=== PATIENT | female | born 1985 | race African-American/Black ===

== ENCOUNTER 2017-01-27 20:16 | Emergency (ER) | payer MEDICARE ==
[~2017-01-27] VITALS: Ht 165.1 cm; Wt 181.8 kg
[~2017-01-27 20:16] MED LIST: BACL20TA PO; CARI6CAP PO; CLON1TAB PO; ESTR1TAB21 PO; LAMO200T PO; OMEP20CA10 PO; OXYC1TAB8 PO; QUET200T PO; QUET400T PO; SIME80TA PO; SUCR1TAB PO; VENL150C2 PO
[2017-01-27 20:28] VITALS: Ht 165.1 cm; Wt 181.8 kg
--- NOTE | 2017-01-27 20:45 | ERPDOC ---
Departure Disposition Decision Date: Jan 27, 2017 Disposition Decision Time: 23:50 Disposition: 01 DISCHARGED HOME, SELF-CARE Impression Impression Impression: Primary Impression: Dyspnea Dyspnea type: dyspnea on exertion Qualified Codes: R06.09 - Other forms of dyspnea Additional Impression: Volume depletion Severity: Moderate Condition: Improved Seen By: Mid-level only Referrals: HAMILTON COOPER DO (Family) Patient Instructions: Dyspnea (ED) Problems/Meds/Labs Reviewed?: Yes Medications reviewed and manag: Yes Additional Instructions: Your labs were all normal today, except that your urine was concentrated and your sodium was mildly elevated indicating you are not drinking enough water. Drink 8-10 glasses of water daily to stay hydrated. Your chest x-ray did not show any infection, pneumonia or fluid. Elevated your legs as needed if you feel they are retaining fluid. If your symptoms persist follow with your PCP for re-evaluation. Follow with your PCP for re-check for your blood pressure. Follow up care ordered?: Yes Mental Status: Alert, Oriented HPI - General Medical General Chief Complaint: Acute Medical Problem Stated Complaint: SWOLLEN FEET/SOB Time Seen by Provider: 20:38 Source: patient HPI - General Medical Initial Comments 31 YO F presents to ED with report of 5 days of decreased urination, SOA, bilateral swelling of feet and ankle. Patient says SOA is with exertion. Has been elevating her feet but says it does not seem to decrease swelling in her feet. Patient denies fever, chills, rhinorrhea, sinus congestion, cough, chest pain, abdominal pain or dysuria. Patient does admit that she is not drinking has much water as she should be. Patient states that her bilateral ankles hurt due to swelling. Patient is morbidly obese and uses a walker to ambulated due to OA of knee joints. Patient currently denies any SOA. Pain Scale: Now: 7/10 (bilateral ankles) Associated Symptoms: shortness of breath, DENIES: chest pain, cough, diaphoresis, fever/chills, headaches, loss of appetite, malaise, nausea/vomiting , rash, seizure, syncope, weakness Allergies: Coded Allergies: iodine (Verified Allergy, Intermediate, BLISTERS AND HIVES, 01/27/17) morphine (Verified Allergy, Intermediate, SIMPSON, TACHYCARDIA, 01/27/17) Iodinated Contrast Media - Oral and (Verified Allergy, Unknown, 01/27/17) ondansetron (Verified Allergy, Unknown, 01/27/17) tramadol (Verified Allergy, Unknown, 01/27/17) Penicillins (Verified Adverse Reaction, Unknown, "peeling skin", 01/27/17) Past History Past Medical History Metabolic: hypertension, DENIES: diabetes ENMT: dental problems Cardiac: DENIES: A-fib, CAD, angina Respiratory: DENIES: COPD, asthma GI: GERD, IBS Female: DENIES: renal insufficiency Neurological: headaches, migraines Musculoskeletal: back pain, osteoarthritis Psychological: anxiety, bipolar, psychosis Surgical History General: EGD, gallbladder, tonsils Reproductive/: hysterectomy Family History Family PMH: FOUND: diabetes, hypertension Vaccines Hx Influenza Vaccination: Yes (2013) Hx Pneumococcal Vaccination: No Social History Substance Use Type: does not use Alcohol Intake: none Sexuality: male partner Review of Systems Constitutional Constitutional: DENIES: chills, dizziness, fever, weakness Eyes General: DENIES: erythema, exudate Lids/Accessories: DENIES: erythema, swelling ENMT Ears: DENIES: pain Sinuses: DENIES: congestion, rhinorrhea Mouth/Throat: DENIES: sore throat Cardiovascular Cardiac: dyspnea on exertion, see HPI, DENIES: chest pain, murmur Rhythm/Rate: DENIES: palpitations Pulmonary Respiratory: DENIES: cough GI Upper Abdomen: DENIES: nausea, pain, vomiting Lower Abdomen: DENIES: diarrhea, pain General: DENIES: dysuria, pain Musculoskeletal General: DENIES: joint pain, pain, tenderness Integumentary Skin: DENIES: color change, itching, rash Neurological General: DENIES: ataxia, change in strength, numbness, paralysis/paresis, weakness Psychiatric Psychiatric: DENIES: anxiety, depression, nervousness Physical Exam General General Nourishment: well nourished, well developed, no acute distress, adult, obese General Body Habitus: well groomed Vitals and Pain First Documented Vital Signs Date Time Temp Pulse Resp B/P Pulse Ox O2 Delivery O2 Flow Rate FiO2 01/27/17 20:28 98.4 107 24 172/99 95 Room Air Weight: Kilograms: 181.800 Height (feet): 5 Height (inches): 5.00 Triage Pain Scale: Eyes (brief) Eyes Brief: found: EOMI ENMT (brief) ENMT Brief: FOUND: TM clear, TM good light reflex, mucosa moist, NOT FOUND: nasal exudate, nasal swelling, pharnyx erythema Neck (brief) Neck: FOUND: trachea midline, NOT FOUND: adenopathy, spasm, tenderness, thyromegaly Respiratory Inspection: FOUND: other (RR20), NOT FOUND: accessory muscle use, increased effort Auscultation: FOUND: decreased (slight decrease on right, clear bilaterally throughout) Cardiovascular Auscultation: FOUND: S1, S2, rate (98), regular Peripheral Pulses : Peripheral Pulses Side: bilateral Peripheral Pulses Location: Dorsalis Pedis Pulses Strength: 2+ Edema : Edema Site: bilateral Edema Location: leg Comments Patient's skin is not tight over ankles/feet or lower extremities. No pedal edema appreciated. Abdomen (brief) Abdominal Brief: FOUND: bowel normo active x4, soft, NOT FOUND: distended, tender Musculoskeletal (brief) Musculoskeletal Brief: NOT FOUND: deformity, tenderness Comments Bilateral ankles have full ROM, with no increased warmth of tissue to touch, erythema or breakdown in skin appreciated. Integumentary (brief) Integumentary Brief: FOUND: dry, pink, warm Neurologic (brief) Neurological Brief: FOUND: CN w/o gross def to obs, motor-no gross deficits, sensory-no gross deficits Psychiatric (brief) Psychiatric Brief: FOUND: alert, normal affect, oriented Differential Diagnoses Considering: UTI Considering: Acute CA, CHF, COPD Exacerbation, Pneumonia, Pulmonary Edema, Pulmonary Embolus, Viral Syndrome Progress Results/Orders Orders Procedure Category Date Status Time Cmp - Comprehensive LAB 01/27/17 Complete Metabolic 20:54 Probnp LAB 01/27/17 Complete 20:54 Cbc W/Auto LAB 01/27/17 Complete Diff-Reflex Manual 20:54 D-Dimer LAB 01/27/17 Complete 20:54 Chest, Pa & Lateral RAD 01/27/17 Resulted 20:54 Iv Lock (Ed Only) EDM 01/27/17 Transmitted 20:54 Ua, Dip Wreflex LAB 01/27/17 Complete Microsc & Heliarc Welder 20:54 LAB 01/27/17 Complete Qualitative, Urine 20:54 Furosemide (Lasix) PHA 01/27/17 Complete 21:45 Normal Saline (Ns) PHA 01/27/17 Complete 23:00 Ketorolac (Toradol) PHA 01/27/17 Complete 23:00 Hydromorphone PHA 01/28/17 Complete (Dilaudid) 00:00 Lab Results Laboratory Tests Test 01/27/17 21:25 01/27/17 22:54 White Blood Count 7.5T/MM3 Red Blood Count 4.44M/MM3 Hemoglobin 13.2GM/DL Hematocrit 40.9% Mean Corpuscular Volume 92.1UM3 Mean Corpuscular Hemoglobin 29.7UUG Mean Corpuscular Hemoglobin Concent 32.3GM/DL RDW Standard Deviation 47.0FL Platelet Count 232T/MM3 Mean Platelet Volume 9.8UM3 Immature Granulocyte % (Auto) 0.4% Neutrophils (%) (Auto) 48.4% Lymphocytes (%) (Auto) 40.0% Monocytes (%) (Auto) 8.8% Eosinophils (%) (Auto) 2.0% Basophils (%) (Auto) 0.4% Absolute Immature Granulocyte (auto 0.03T/MM3 Absolute Neutrophils (auto) 3.6T/MM3 Absolute Lymphocytes (auto) 3.0T/MM3 Absolute Monocytes (auto) 0.7T/MM3 Absolute Eosinophils (auto) 0.2T/MM3 Absolute Basophils (auto) 0.0T/MM3 D-Dimer < 150NG/ML Turbidity < 20 Sodium Level 147MEQ/L Potassium Level 4.1MEQ/L Chloride Level 109MEQ/L Carbon Dioxide Level 24MEQ/L Anion Gap 14MEQ/L Blood Urea Nitrogen 15.0MG/DL Creatinine 0.7MG/DL Glomerular Filtration Rate Calc 96 BUN/Creatinine Ratio 21RATIO Glucose Level 109MG/DL Calculated Osmolality 284MOSM/KG Calcium Level 9.5MG/DL Total Bilirubin 0.40MG/DL Icterus Index < 2 Aspartate Amino Transf (AST/SGOT) 15U/L Alanine Aminotransferase (ALT/SGPT) 27U/L Alkaline Phosphatase 85U/L FH-Twv-F-Type Natriuretic Peptide 66PG/ML Total Protein 7.4G/DL Albumin 3.9G/DL Globulin 3.5G/DL Albumin/Globulin Ratio 1.1RATIO Chemistry Specimen Hemolysis < 15 Urine Collection Type Voided-not cc-midstr Urine Color Yellow Urine Turbidity Clear Urine pH 5.5 Urine Specific Lyons >=1.030 Urine Protein Trace Urine Glucose (UA) Negative Urine Ketones Negative Urine Blood Negative Urine Nitrite Negative Urine Bilirubin Negative Urine Urobilinogen 0.2EU/DL Urine Leukocyte Esterase Negative Urinalysis Comment Microscopic not ind. Urine Test Negative Medications Current ED Medications Furosemide 40 mg 40 mg O ONCE IV ; Start 01/27/17 at 21:45; Stop 01/27/17 at 21: 59; Status DC Sodium Chloride (NS) 500 ml @ 0 mls/hr Q0M ONCE IV Last administered on 23:06; Start 01/27/17 at 23:00; Stop 01/27/17 at 23:01; Status DC Ketorolac Tromethamine (Toradol) 30 mg O ONCE IV Last administered on 23:06; Start 01/27/17 at 23:00; Stop 01/27/17 at 23:01; Status DC Hydromorphone HCl (Dilaudid) 1 mg O ONCE IV Last administered on 01/28/17 00: 00; Start 01/28/17 at 00:00; Stop 01/28/17 at 00:01; Status DC Progress Progress CBC normal CMP unremarkable except for NA 147 D-dimer <150 ProBNP 66 UA normal except for SG 1.030 Patient BP is elevated however is consistent to previous reading when patient has been in our ED. Patient reports history of hypertension but is not currently being treated for this. I discussed recheck of her BP this week with PCP. Other VS including SpO2 consistent with other visits to our ED. I feel patient's morbid obesity is directly related to patient dyspnea on exertion and ankle pain. Patient reports feeling better and request to go home. Patient instructed to follow with PCP early next week, treatment plan and return precautions which patient verbalized understanding. Patient encourage to drink more water/fluids. Xray Xray : Xray: CXR PA/Lat (stable chest with no acute cardiopulmonary findings (Dr. Simeon)) LORNA ANTUNEZ APRN Jan 27, 2017 20:44
[2017-01-27] MEDS ORDERED: POLY17PO6 PO (20:50)
[2017-01-27] MEDS ORDERED: [UNRECOGNIZED DRUG - CODE] PO (20:50)
[2017-01-27] MEDS ORDERED: BENZ1TAB7 PO (20:51)
[2017-01-27] MEDS ORDERED: IBUP-1546 PO (20:51)
--- NOTE | 2017-01-27 21:03 | NUR ---
CXR Patient out to XRay
--- NOTE | 2017-01-27 21:11 | NUR ---
Radiology Patient returns from CXR
[2017-01-27 21:31] LABS: BASOPHILS % (AUTO) 0.4 % (0-2); EOSINOPHILS # (AUTO) 0.2 T/MM3 (0-0.5); HCT - HEMATOCRIT 40.9 % (36-46); HGB - HEMOGLOBIN 13.2 GM/DL (12-16); IMMATURE GRANULOCYTE # (AUTO) 0.03 T/MM3 (0.00-0.03); IMMATURE GRANULOCYTE % (AUTO) 0.4 % (0.0-0.5); MEAN CORPUSCULAR HGB 29.7 UUG (26-34); MEAN CORPUSCULAR HGB CONC(MCHC 32.3 GM/DL (31-37); MEAN CORPUSCULAR VOLUME 92.1 UM3 (80-100); MEAN PLATELET VOLUME 9.8 UM3 (9.4-12.4); MONOCYTES # (AUTO) 0.7 T/MM3 (0-0.8); MONOCYTES % (AUTO) 8.8 % (0-9.0); NEUTROPHILS #(AUTO)-ABSOLUTE 3.6 T/MM3 (1.8-7.7); NEUTROPHILS % (AUTO) 48.4 % (33-66); RED BLOOD COUNT 4.44 M/MM3 (4.00-5.20); WBC - WHITE BLOOD COUNT 7.5 T/MM3 (4.5-11.0)
[2017-01-27 21:43] LABS: ALBUMIN 3.9 G/DL (3.5-5.0); ALBUMIN/GLOBULIN RATIO 1.1 RATIO (1.1-2.2); ALKALINE PHOSPHATASE 85 U/L (38-126); ALT (SGPT) 27 U/L (9-52); ANION GAP 14 MEQ/L (5-15); AST (SGOT) 15 U/L (14-36); BUN/CREATININE RATIO 21 RATIO (6-26); CALCIUM 9.5 MG/DL (8.4-10.2); CHLORIDE 109 MEQ/L (98-107); CO2 - CARBON DIOXIDE 24 MEQ/L (22-30); CREATININE 0.7 MG/DL (0.7-1.2); GLOMERULAR FILTRATION RATE 96; GLUCOSE 109 MG/DL (65-110); POTASSIUM 4.1 MEQ/L (3.6-5); SODIUM 147 MEQ/L (134-144); TOTAL PROTEIN 7.4 G/DL (6.3-8.2)
[2017-01-27] MEDS ORDERED: FUROSEMIDE 40 MG/4 ML INJECTION IV ONE (21:45)
[2017-01-27 21:51] LABS: PROBNP 66 PG/ML (0-175)
[2017-01-27] MEDS ORDERED: KETOROLAC 30mg/ml INJECTION IV ONE (23:00)
[2017-01-27] MEDS ORDERED: NORMAL SALINE 500 ML IV ONE (23:00)
[2017-01-27 23:20] LABS: BLOOD, URINE NEGATIVE (NEGATIVE); COLOR,URINE YELLOW (YELLOW); LEUKOCYTE ESTERASE ,URINE NEGATIVE (NEGATIVE); NITRITE,URINE NEGATIVE (NEGATIVE); UROBILINOGEN,URINE 0.2 EU/DL (NORMAL)
[2017-01-28] MEDS ORDERED: HYDROMORPHONE 2mg/ml INJECTION IV ONE
[2017-01-28 00:26] VITALS: BP 179/92; PULSE 86; RESP 20; TEMP 98.4; O2SAT 94
--- NOTE | 2017-01-28 08:53 | DI ---
INDICATION: ITS.REASON: SOA PROCEDURE: CHEST 2-VIEWS UPRIGHT (PA \T\ LAT) Encounter: Initial Comparison: September 16, 2016 Findings: The lungs are stable in appearance without new focal airspace consolidation. There is no pleural effusion or pneumothorax. The heart size, pulmonary vascularity and mediastinal contours are unchanged. IMPRESSION: Stable appearance of the chest without acute cardiopulmonary disease. .
== END 2017-01-28 00:26 | disposition home or self-care (01) ==
LOC: ED 20:16
DX: R06.09 Other forms of dyspnea (principal); M79.89 Other specified soft tissue disorders; E86.9 Volume depletion, unspecified; E66.01 Morbid (severe) obesity due to excess calories; Z68.44 Body mass index [BMI] 60.0-69.9, adult
CPT/HCPCS: 71020; 80053; 81003; 81025; 83880; 85025; 85379; 96374; 96375; 99284; J1170; J1885; 36000

== ENCOUNTER 2017-01-30 22:49 | Emergency (ER) | payer MEDICARE ==
[~2017-01-30] VITALS: Ht 165.1 cm; Wt 180.9 kg
[~2017-01-30 22:49] MED LIST changes: -BACL20TA PO; +BENZ1TAB7 PO; -ESTR1TAB21 PO; +IBUP-1546 PO; +POLY17PO6 PO; -QUET200T PO; -SIME80TA PO; -SUCR1TAB PO
[2017-01-30 23:04] VITALS: Ht 165.1 cm; Wt 180.9 kg
--- NOTE | 2017-01-30 23:18 | ERPDOC ---
Departure Disposition Decision Date: Jan 30, 2017 Disposition Decision Time: 23:25 Disposition: 01 DISCHARGED HOME, SELF-CARE Impression Impression Impression: Primary Impression: Headache Qualified Codes: G44.209 - Tension-type headache, unspecified, not intractable Additional Impression: Otalgia of right ear Severity: Moderate Condition: Stable Seen By: Mid-level only Referrals: HAMILTON COOPER DO (Family) Patient Instructions: Acute Headache (ED) Problems/Meds/Labs Reviewed?: Yes Medications reviewed and manag: Yes Additional Instructions: I do want you to continue to take the Tylenol for your pain. Take the Clindamycin as prescribed for your dental pain. I do want you to call [facility] tomorrow and schedule a follow up appointment with their dental clinic to have your teeth evaluated. Take your Percocet as needed for pain. Follow up care ordered?: Yes Mental Status: Alert Scripts Clindamycin HCl (Clindamycin HCl) 150 Mg Capsule 1 CAP PO TID, #30 CAP 0 Refills TAKE WITH A FULL GLASS OF WATER TO AVOID ESOPHAGEAL IRRITATION. Prov: KEIKOMARIANNEMARIESHAKIRA N CREDIT CONTROL CLERK 01/30/17 HPI - Headache General Chief Complaint: Headache Stated Complaint: JAW PAIN/HEADACHE Time Seen by Provider: 22:56 Source: patient Exam Limitations: no limitations HPI - Headache Initial Comments She presents to ER today for evaluation of headache, jaw pain, right ear pain. This all started 2 days ago with the headache first. Headache is in the back of her head. Has taken Tylenol at home for the pain. Denies any head injury. She also has a sensation like there is some swelling to the roof of her mouth as well as pain in the right jaw. She is still able to open and close her mouth fully. Right ear pain that started yesterday. Denies any sore throat or nasal congestion/drainage. She has a known history of trouble with her teeth and has been evaluated by the dentist at . Has not had to follow up with them in some time. Denies any fever/chills, nausea/vomiting, or blurred vision. Did noted her b/p is elevated. Does have a history of elevated b/p with previous ER visits. Does have her blood pressure monitored by as well. Occurred At: home Onset: Gradual Duration: 12-24 hrs Severity/Quality: moderate Location: occipital Prior Headaches/Recent Trauma: no recent headache/trauma Associated Symptoms: facial pain, DENIES: confusion, fatigue, fever/chills, flushing, loss of consciousness, nasal congestion, nasal drainage, nausea/ vomiting, numbness in legs/feet, rash, seizures, sinus infection, stiff neck, vision changes, weakness Hx of Similar Symptoms: Yes Allergies: Coded Allergies: iodine (Verified Allergy, Intermediate, BLISTERS AND HIVES, 01/27/17) morphine (Verified Allergy, Intermediate, SIMPSON, TACHYCARDIA, 01/27/17) Iodinated Contrast Media - Oral and (Verified Allergy, Unknown, 01/27/17) ondansetron (Verified Allergy, Unknown, 01/27/17) tramadol (Verified Allergy, Unknown, 01/27/17) Penicillins (Verified Adverse Reaction, Unknown, "peeling skin", 01/27/17) Past History Past Medical History Metabolic: hypertension ENMT: dental problems GI: GERD, IBS Neurological: headaches, migraines Musculoskeletal: back pain, osteoarthritis Psychological: anxiety, bipolar, psychosis Surgical History General: EGD, gallbladder, tonsils Reproductive/: hysterectomy Family History Family PMH: FOUND: diabetes, hypertension Vaccines Hx Influenza Vaccination: Yes (2013) Hx Pneumococcal Vaccination: No Social History Substance Use Type: does not use Alcohol Intake: none Sexuality: male partner Review of Systems Constitutional Constitutional: DENIES: chills, dizziness, fatigue, fever, weakness Eyes Vision: DENIES: blurring, double vision ENMT Ears: pain (right ear), DENIES: drainage Sinuses: DENIES: congestion, rhinorrhea Mouth/Throat: DENIES: painful swallowing, scratchy throat, sore throat Teeth: pain Jaw: pain (right jaw), DENIES: clicking, popping Cardiovascular Cardiac: DENIES: chest pain Rhythm/Rate: DENIES: irregular beat, palpitations Pulmonary Respiratory: DENIES: cough, dyspnea, sputum, tachypnea GI Upper Abdomen: DENIES: nausea, pain, vomiting Lower Abdomen: DENIES: constipation, diarrhea, pain Integumentary Skin: DENIES: rash Neurological General: headache, DENIES: numbness, tingling, weakness Physical Exam General General Nourishment: well nourished, well developed, appears stated age, no acute distress, adult, obese General Body Habitus: well groomed Vitals and Pain First Documented Vital Signs Date Time Temp Pulse Resp B/P Pulse Ox O2 Delivery O2 Flow Rate FiO2 01/30/17 23:04 98.8 99 20 205/119 97 Room Air Weight: Kilograms: 180.900 Height (feet): 5 Height (inches): 5.00 Triage Pain Scale: RN VS reviewed by Provider: Yes Normal Exams: Eyes: Pupils are PERRLA w/ EOMI, No scleral icterus, irritation, or foreign bodies noted Neck: Full range of motion, without adenopathy, JVD, bruits or thyromegaly Chest/Resp: Clear all watson, with good airflow, and symmetry bilaterally CV: Regular rate and rhythm, without murmur or gallop, Pulses 2+ all extremities, capillary refill, <2 seconds all ext., no pedal edema noted Abdomen: Bowel sounds positive, soft, non-tender, non-distended, no hepatosplenomegaly, masses or bruits noted Lymphatic: No lymphadenopathy, or lymphedema noted Integumentary: No rashes, hives, or bruising noted Neurologic: Patient is alert, and oriented, cranial nerves, motor/sensory/ cerebellar, exams w/o gross deficits, to observation Psychiatric: Patient exhibits, appropriate attention, emotion and affect ENMT (brief) ENMT Brief: FOUND: TM clear, TM good light reflex, ear canals clear, mucosa moist, normal tonsils, NOT FOUND: lesions, nasal erythema, nasal exudate, nasal swelling, normal dentition (many teeth that are fractured to the gumline), other (swelling or erythema of the gums or the roof of the mouth. ), petechiae, pharnyx erythema, tonsillar deviation [employer] Dental Face: NOT FOUND: asymmetry, bruising, erythema, swelling, tender Gums: moist, pink, NOT FOUND: exudate, lesion, swelling Teeth: caries, fractures Pharynx: NOT FOUND: erythema, exudate, lateral pillar signs, swelling, uvular deviation Tonsils: NOT FOUND: erythema, exudate Neck: NOT FOUND: L anterior adenopathy, L posterior adenopathy, R anterior adenopathy, R posterior adenopathy Differential Diagnoses Considering: Headache, Headache - Migraine, Headache - Tension/Muscle, Sinusitis - Sphenoid, Sinusitis - Maxillary, Sinusitis - Frontal, TMJ, Toothache , Other (dental pain, dental abscess) Progress Results/Orders Orders Procedure Category Date Status Time Ketorolac (Toradol) PHA 01/30/17 Complete 23:30 Orphenadrine (Norflex) PHA 01/30/17 Complete 23:30 Clindamycin (Cleocin) PHA 01/30/17 Complete 23:30 Medications Current ED Medications Ketorolac Tromethamine (Toradol) 60 mg O ONCE IM ; Start 01/30/17 at 23:30; Stop 01/30/17 at 23:31; Status DC Orphenadrine Citrate (Norflex) 60 mg O ONCE IM ; Start 01/30/17 at 23:30; Stop 01/30/17 at 23:31; Status DC Clindamycin HCl (Cleocin) 150 mg O ONCE PO ; Start 01/30/17 at 23:30; Stop 09/07 at 23:31; Status DC Progress Progress I do think that the ear and jaw pain and the sensation of swelling in her mouth is more related to a dental issue. She does have many fractured teeth and caries. Will have her start some Clindamycin for the infection. Have her follow up with dentist. I do think that her headache is secondary to the pain and infection. Will try to treat headache with Norflex and Toradol today. Have her continue to take her home medications for pain. SHAKIRA QUINTANA APRN Jan 30, 2017 23:18
[2017-01-30] MEDS ORDERED: CLIN-89 PO (23:27)
[2017-01-30] MEDS ORDERED: KETOROLAC 60mg/2ml INJECTION IM ONE (23:30)
[2017-01-30] MEDS ORDERED: CLINDAMYCIN 150 MG CAPSULE PO ONE (23:30)
[2017-01-30] MEDS ORDERED: ORPHENADRINE 60mg/2ml INJECTION IM ONE (23:30)
[2017-01-30 23:50] VITALS: BP 169/95; PULSE 86; RESP 20; TEMP 98.8; O2SAT 96
== END 2017-01-30 23:50 | disposition home or self-care (01) ==
LOC: ED 22:49
DX: G44.209 Tension-type headache, unspecified, not intractable (principal); R68.84 Jaw pain; H92.01 Otalgia, right ear; K02.9 Dental caries, unspecified
CPT/HCPCS: 96372; 99283; A9270; J1885; J2360

== ENCOUNTER 2017-02-11 18:11 | Emergency (ER) | payer MEDICARE ==
[~2017-02-11] VITALS: Ht 165.1 cm; Wt 178.8 kg
[~2017-02-11 18:11] MED LIST changes: +CLIN-89 PO
[2017-02-11 18:24] VITALS: Ht 165.1 cm; Wt 178.8 kg
--- NOTE | 2017-02-11 19:23 | ERPDOC ---
Departure Disposition Decision Date: Feb 11, 2017 Disposition Decision Time: 19:00 Disposition: 01 DISCHARGED HOME, SELF-CARE Impression Impression Impression: Primary Impression: Cystocele Cystocele location: midline Qualified Codes: N81.11 - Cystocele, midline Severity: Moderate Condition: Stable Seen By: Mid-level only Referrals: HAMILTON COOPER DO (Family) NADIYA CORNELL MD Patient Instructions: Cystocele (ED) Problems/Meds/Labs Reviewed?: Yes Medications reviewed and manag: Yes Additional Instructions: You may use OTC Azo for bladder discomfort. You may insert a tampon into your vagina to help keep bladder from protruding outward. Call Dr. Cornell office [phone] and let them know we spoke with her while you were in the ED. Let them know that Dr. Cornell said that her office could help assist you with scheduling an appointment with Dr. Zach Mcdaniel or Dr. Buck Trujillo ([phone]). Follow treatment plan. Follow up care ordered?: Yes Mental Status: Alert, Oriented HPI - Female General Chief Complaint: Female Urogenital Problems Stated Complaint: VAGINAL PROBLEMS Time Seen by Provider: 19:22 Source: patient HPI - Female Initial Comments 32 YO F presents to ED with one week hx. of feeling like something is hanging out of her vagina when she sits or stands. Stay she has a nagging irritation/ discomfort in pelvic area. Patient say she is not sexually active and has not been for some time. Denies any fever, chills, new vaginal discharge/bleeding, dysuria. Does admit more urinary frequency. Patient had "bladder sling with mesh" and hysterectomy in 2013. Pain Scale: Now: 2/10, Worst: 5/10 Severity/Quality: other (unable to describe) Radiation: vaginal Associated Symptoms: urinary frequency, DENIES: abdominal pain, diaphoresis, dysuria, fever/chills, loss of bladder control, lower back pain, lumps, mass, nausea/vomiting, nocturia, polyuria, swelling, syncope Is Pt now?: No Allergies: Coded Allergies: iodine (Verified Allergy, Intermediate, BLISTERS AND HIVES, 01/27/17) morphine (Verified Allergy, Intermediate, SIMPSON, TACHYCARDIA, 01/27/17) Iodinated Contrast Media - Oral and (Verified Allergy, Unknown, 01/27/17) ondansetron (Verified Allergy, Unknown, 01/27/17) tramadol (Verified Allergy, Unknown, 01/27/17) Penicillins (Verified Adverse Reaction, Unknown, "peeling skin", 01/27/17) Past History Past Medical History Metabolic: hypertension ENMT: dental problems Cardiac: DENIES: angina Respiratory: COPD, DENIES: asthma GI: GERD, IBS, ulcers Female: DENIES: renal insufficiency Neurological: headaches, migraines Musculoskeletal: back pain, osteoarthritis Psychological: anxiety, bipolar, psychosis Surgical History General: EGD, gallbladder, tonsils Reproductive/: hysterectomy, other (bladder sling ) Family History Family PMH: FOUND: diabetes, hypertension Vaccines Hx Influenza Vaccination: Yes (2013) Hx Pneumococcal Vaccination: No Social History Substance Use Type: does not use Alcohol Intake: none Sexuality: male partner Review of Systems Constitutional Constitutional: DENIES: chills, dizziness, fever, weakness Eyes General: DENIES: erythema, exudate Lids/Accessories: DENIES: erythema, swelling ENMT Ears: DENIES: pain Sinuses: DENIES: congestion, rhinorrhea Mouth/Throat: DENIES: sore throat Cardiovascular Cardiac: DENIES: chest pain, murmur Rhythm/Rate: DENIES: palpitations Pulmonary Respiratory: DENIES: cough, dyspnea GI Upper Abdomen: DENIES: nausea, pain, vomiting Lower Abdomen: DENIES: diarrhea, pain General: urgency, DENIES: dysuria, pain Female: pelvic pain Musculoskeletal General: DENIES: joint pain, pain, tenderness Integumentary Skin: DENIES: color change, itching, rash Neurological General: DENIES: ataxia, change in strength, numbness, paralysis/paresis, weakness Psychiatric Psychiatric: DENIES: anxiety, depression, nervousness Physical Exam General General Nourishment: well nourished, well developed, adult, obese (morbidly) General Body Habitus: well groomed Vitals and Pain First Documented Vital Signs Date Time Temp Pulse Resp B/P Pulse Ox O2 Delivery O2 Flow Rate FiO2 02/11/17 18:24 98.5 99 24 181/90 98 Room Air Weight: Kilograms: 178.800 Height (feet): 5 Height (inches): 5.00 Triage Pain Scale: Eyes (brief) Eyes Brief: found: EOMI ENMT (brief) ENMT Brief: NOT FOUND: nasal exudate, nasal swelling Neck (brief) Neck: FOUND: trachea midline Respiratory (brief) Respiratory: FOUND: clear all watson, equal bilaterally, symmetrical Cardiovascular (brief) Cardiac: FOUND: regular rate, regular rhythm Abdomen (brief) Abdominal Brief: FOUND: bowel normo active x4, soft, NOT FOUND: tender Vulva: NOT FOUND: blood, ecchymosis, erythema, swelling Vagina: FOUND: color (pale pink), moisture (moist), other (cystocele midline with mild distal TTP), NOT FOUND: blood, discharge Musculoskeletal (brief) Musculoskeletal Brief: NOT FOUND: deformity, loss of motion Integumentary (brief) Integumentary Brief: FOUND: dry, pink, warm Neurologic (brief) Neurological Brief: FOUND: motor-no gross deficits, sensory-no gross deficits Psychiatric (brief) Psychiatric Brief: FOUND: alert, normal affect, oriented Differential Diagnoses Considering: UTI, Bacterial Vaginitis, Yeast Vaginitis, Other (Cystocele, Other Vaginitis) Progress Results/Orders Orders Procedure Category Date Status Time Ua, Dip Wreflex LAB 02/11/17 Complete Microsc & Shot Hole Shooter 20:15 Phenazopyridine Hcl PHA 02/11/17 Complete (Pyridium Eq.) 21:45 Hydromorphone PHA 02/11/17 Complete (Dilaudid) 21:45 Lab Results Laboratory Tests Test 02/11/17 21:04 Urine Collection Type Voided-not cc-midstr Urine Color Yellow Urine Turbidity Sl cloudy Urine pH 6.0 Urine Specific [place] 1.020 Urine Protein Negative Urine Glucose (UA) Negative Urine Ketones Negative Urine Blood Negative Urine Nitrite Negative Urine Bilirubin Negative Urine Urobilinogen 0.2EU/DL Urine Leukocyte Esterase Negative Urinalysis Comment Microscopic not ind. Medications Current ED Medications Phenazopyridine HCl (Pyridium Eq.) 190 mg O ONCE PO Last administered on 21:52; Start 02/11/17 at 21:45; Stop 02/11/17 at 21:46; Status DC Hydromorphone HCl (Dilaudid) 1 mg O ONCE IM Last administered on 02/11/17 21: 53; Start 02/11/17 at 21:45; Stop 02/11/17 at 21:46; Status DC Progress Progress UA negative for infection. Patient is morbidly obese so is unable to squat so provider can feel what patient is describing as protrusion from her vagina. I discussed exam findings with patient and that if feel she has a cystocele based on exam findings. I discussed conversation I had with Dr. Cornell with patient. Patient verbalized understanding of treatment plan, close follow up and return precautions which patient verbalized understanding. Consult/PCP Consult/PCP : Physician Contacted: Dr. Cornell Type of discussion: Phone Consult/PCP Discussion Details I discussed patient's HPI, past medical history, vital signs and exam findings with Dr. Cornell VIBRATION TECHNICIAN on-call for unassigned. Dr. Cornell suggest patient insert a tampon to help bladder up and from treating out of vagina. She also recommended Azo for bladder discomfort. Dr. Cornell stated that her office could help set up an appointment for patient with Dr. Zach Mcdaniel or Dr. Buck Huang patient would need to follow-up since she already has had a bladder sling with mesh. Dr. Cornell said she nor no one in her office treat this type of problem. LORNA MCDANIEL [employer] LANGUAGE TUTOR Feb 11, 2017 19:23
[2017-02-11 21:10] LABS: BLOOD, URINE NEGATIVE (NEGATIVE); COLOR,URINE YELLOW (YELLOW); LEUKOCYTE ESTERASE ,URINE NEGATIVE (NEGATIVE); NITRITE,URINE NEGATIVE (NEGATIVE); UROBILINOGEN,URINE 0.2 EU/DL (NORMAL)
[2017-02-11] MEDS ORDERED: PHENAZOPYRIDINE 95 MG TABLET PO ONE (21:45)
[2017-02-11] MEDS ORDERED: HYDROMORPHONE 2mg/ml INJECTION IM ONE (21:45)
[2017-02-11 22:00] VITALS: BP 156/72; PULSE 81; RESP 18; TEMP 98.5; O2SAT 97
== END 2017-02-11 22:00 | disposition home or self-care (01) ==
LOC: ED 18:11
DX: N81.11 Cystocele, midline (principal); Z90.710 Acquired absence of both cervix and uterus
CPT/HCPCS: 81003; 96372; 99283; A9270; J1170

== ENCOUNTER 2017-02-14 21:33 | Emergency (ER) | payer MEDICARE ==
[~2017-02-14] VITALS: Ht 165.1 cm; Wt 181.6 kg
[~2017-02-14 21:33] MED LIST changes: -IBUP-1546 PO
[2017-02-14 21:45] VITALS: Ht 165.1 cm; Wt 181.6 kg
--- NOTE | 2017-02-14 22:17 | ERPDOC ---
Departure Disposition Decision Date: Feb 14, 2017 Disposition Decision Time: 23:15 Disposition: 01 DISCHARGED HOME, SELF-CARE Impression Impression Impression: Primary Impression: Decreased urination Severity: Moderate Condition: Stable Seen By: Mid-level only Referrals: HAMILTON COOPER DO (Family) Patient Instructions: Acute Urinary Retention in Women (ED) Problems/Meds/Labs Reviewed?: Yes Medications reviewed and manag: Yes Additional Instructions: I do want you to drink extra fluids at home. You had about 400ml in your bladder when they performed the catherization which is not bad. Follow up with the specialist in February as scheduled. If you have any other concerns then please follow up with [facility]. Follow up care ordered?: Yes Mental Status: Alert HPI - Female General Chief Complaint: Female Urogenital Problems Stated Complaint: DIFF URINATING Time Seen by Provider: 21:51 Source: patient Exam Limitations: no limitations HPI - Female Initial Comments She was evaluated in ER on 02/11/17 and diagnosed with a cystocele. She has an appointment schedule with a specialist for March 07 due to the fact that she has had a bladder sling with mesh already. She has felt today as if she cannot urinate. She has been trying to push fluids at home. Last voided at home at noon and is having some low abdominal pressure and fullness. Called her PCP who advised she come to ER for evaluation. She has had some left flank pain and chills. Occurred At: home Onset: Gradual Duration: 12-24 hrs Radiation: none Associated Symptoms: DENIES: abdominal pain, diaphoresis, dysuria, fever/chills , loss of bladder control, lower back pain, lumps, mass, nausea/vomiting, nocturia, polyuria, swelling, syncope, urinary frequency Hx of Similar Symptoms: No Is Pt now?: No Allergies: Coded Allergies: iodine (Verified Allergy, Intermediate, BLISTERS AND HIVES, 01/27/17) morphine (Verified Allergy, Intermediate, SIMPSON, TACHYCARDIA, 01/27/17) Iodinated Contrast Media - Oral and (Verified Allergy, Unknown, 01/27/17) ondansetron (Verified Allergy, Unknown, 01/27/17) tramadol (Verified Allergy, Unknown, 01/27/17) Penicillins (Verified Adverse Reaction, Unknown, "peeling skin", 01/27/17) Past History Past Medical History Metabolic: hypertension ENMT: dental problems Respiratory: COPD GI: GERD, IBS, ulcers Neurological: headaches, migraines Musculoskeletal: back pain, osteoarthritis Psychological: anxiety, bipolar, psychosis Surgical History General: EGD, gallbladder, tonsils Reproductive/: hysterectomy, other Family History Family PMH: FOUND: diabetes, hypertension Vaccines Hx Influenza Vaccination: Yes (2013) Hx Pneumococcal Vaccination: No Social History Smoking Status: Never smoker Substance Use Type: does not use Alcohol Intake: none Sexuality: male partner Review of Systems Constitutional Constitutional: chills, DENIES: dizziness, fatigue, fever, weakness Cardiovascular Cardiac: DENIES: chest pain, orthopnea Rhythm/Rate: DENIES: irregular beat, palpitations Pulmonary Respiratory: DENIES: cough, dyspnea, sputum, tachypnea GI Upper Abdomen: DENIES: nausea, pain, vomiting Lower Abdomen: DENIES: constipation, diarrhea, pain Integumentary Skin: DENIES: rash Neurological General: DENIES: headache, numbness, tingling, weakness Physical Exam General General Nourishment: well nourished, well developed, appears stated age, no acute distress, adult, obese General Body Habitus: well groomed Vitals and Pain First Documented Vital Signs Date Time Temp Pulse Resp B/P Pulse Ox O2 Delivery O2 Flow Rate FiO2 02/14/17 21:45 98.9 104 22 218/111 95 Room Air Weight: Kilograms: 181.600 Height (feet): 5 Height (inches): 5.00 Triage Pain Scale: RN VS reviewed by Provider: Yes Normal Exams: Neck: Full range of motion, without adenopathy, JVD, bruits or thyromegaly Chest/Resp: Clear all watson, with good airflow, and symmetry bilaterally CV: Regular rate and rhythm, without murmur or gallop, Pulses 2+ all extremities, capillary refill, <2 seconds all ext., no pedal edema noted Abdomen: Bowel sounds positive, soft, non-tender, non-distended, no hepatosplenomegaly, masses or bruits noted Lymphatic: No lymphadenopathy, or lymphedema noted Integumentary: No rashes, hives Neurologic: Patient is alert, and oriented Psychiatric: Patient exhibits, appropriate attention, emotion and affect Abdomen (brief) Abdominal Brief: FOUND: other (Denies any CVA tenderness today on exam. ) Differential Diagnoses Considering: UTI, Other (Urinary retention, pyelonephritis) Progress Results/Orders Orders Procedure Category Date Status Time Murillo (Ed) EDM 02/14/17 Transmitted 22:13 Ua, Dip Wreflex LAB 02/14/17 Complete Microsc & Business Mgr 22:13 Lab Results Laboratory Tests Test 02/14/17 22:46 Urine Collection Type Murillo indwelling Urine Color Yellow Urine Turbidity Clear Urine pH 5.5 Urine Specific [place] >=1.030 Urine Protein Trace Urine Glucose (UA) Negative Urine Ketones Negative Urine Blood Negative Urine Nitrite Negative Urine Bilirubin 1+ Urine Urobilinogen 0.2EU/DL Urine Leukocyte Esterase Negative Urinalysis Comment Microscopic not ind. Progress Progress UA today is clear of infection. She only had about 400ml of urine out upon catheterization but urine was concentrated. Will take the murillo out and have her push fluids at home. Follow up with her specialist as scheduled in February. If any further concerns then return to Er. SHAKIRA QUINTANA APRN Feb 14, 2017 22:17
[2017-02-14 23:14] LABS: BLOOD, URINE NEGATIVE (NEGATIVE); COLOR,URINE YELLOW (YELLOW); LEUKOCYTE ESTERASE ,URINE NEGATIVE (NEGATIVE); NITRITE,URINE NEGATIVE (NEGATIVE); UROBILINOGEN,URINE 0.2 EU/DL (NORMAL)
[2017-02-14 23:30] VITALS: BP 159/89; PULSE 87; RESP 22; TEMP 98.9; O2SAT 96
[2017-02-15] MEDS ORDERED: CLON0.5T4 PO (18:12)
== END 2017-02-14 23:30 | disposition home or self-care (01) ==
LOC: ED 21:33
DX: R34 Anuria and oliguria (principal)
CPT/HCPCS: 51702; 81003

== ENCOUNTER 2017-02-15 17:12 | Emergency (ER) | payer MEDICARE ==
[~2017-02-15] VITALS: Ht 165.1 cm; Wt 183.9 kg
[2017-02-15 17:20] VITALS: TEMP 98.4; Ht 165.1 cm; Wt 183.9 kg
--- NOTE | 2017-02-15 18:00 | NUR ---
ACTIVITY PATIENT AMBULATES TO BATHROOM TO ATTEMPT TO VOID
[2017-02-15] MEDS ORDERED: CLON0.5T4 PO (18:12)
--- NOTE | 2017-02-15 19:09 | ERPDOC ---
Departure Disposition Decision Date: Feb 15, 2017 Disposition Decision Time: 19:54 Disposition: 01 DISCHARGED HOME, SELF-CARE Impression Impression Impression: Primary Impression: Urinary retention Severity: Mild Condition: Improved Seen By: Physician only Referrals: HAMILTON COOPER DO (Family) 1 Day Patient Instructions: Acute Urinary Retention in Women (ED) Problems/Meds/Labs Reviewed?: Yes Medications reviewed and manag: Yes Follow up care ordered?: Yes Mental Status: Alert, Oriented HPI - General Medical General Chief Complaint: Female Urogenital Problems Stated Complaint: UNABLE TO URINATE Time Seen by Provider: 18:13 Source: patient Exam Limitations: no limitations HPI - General Medical Initial Comments 32-year-old female presents to emergency department with a chief complaint of difficulty urinating. Patient has had these symptoms for the past 3 weeks. Patient has had a bladder sling in the past and the bladder sling has been malfunctioning. She called her primary care physician Dr. Cooper who recommended the patient come to the emergency department for Whitman catheter placement. Patient notes suprapubic abdominal discomfort without radiation. It is dull. It is mild. She denies any trauma, travel, poorly prepared food, recent antibiotic use. She states the last time she urinated was earlier today but it felt difficult to go. She denies any other complaints or associated symptoms. Symptoms have been present for the past 3 weeks. She was at home when her symptoms began. She has been seen in the emergency department and had a catheter placed which alleviated her symptoms began but it was not left in place one day ago. Occurred At: home Onset: Constant Allergies: Coded Allergies: iodine (Verified Allergy, Intermediate, BLISTERS AND HIVES, 02/15/17) morphine (Verified Allergy, Intermediate, SIMPSON, TACHYCARDIA, 02/15/17) Iodinated Contrast Media - Oral and (Verified Allergy, Unknown, 02/15/17) ondansetron (Verified Allergy, Unknown, 02/15/17) tramadol (Verified Allergy, Unknown, 02/15/17) Penicillins (Verified Adverse Reaction, Unknown, "peeling skin", 02/15/17) Past History Past Medical History Metabolic: hypertension ENMT: dental problems Respiratory: COPD GI: GERD, IBS, ulcers Neurological: headaches, migraines Musculoskeletal: back pain, osteoarthritis Psychological: anxiety, bipolar, psychosis Surgical History General: EGD, gallbladder, tonsils Reproductive/: hysterectomy, other Family History Family PMH: FOUND: diabetes, hypertension Vaccines Hx Influenza Vaccination: Yes (2013) Hx Pneumococcal Vaccination: No Social History Smoking Status: Never smoker Substance Use Type: does not use Alcohol Intake: none Sexuality: male partner Review of Systems Constitutional Constitutional: DENIES: chills, fever Eyes General: DENIES: erythema, exudate Lids/Accessories: DENIES: erythema, swelling Vision: DENIES: acuity, blurring ENMT Ears: DENIES: drainage, erythema Hearing: DENIES: hearing loss Balance: DENIES: ataxia, falling to one side Sinuses: DENIES: congestion, pain Nose: DENIES: nosebleeds, pain Mouth/Throat: DENIES: painful swallowing, sore throat Teeth: DENIES: pain Jaw: DENIES: pain Cardiovascular Cardiac: DENIES: chest pain, dyspnea on exertion Rhythm/Rate: DENIES: irregular beat, palpitations Vascular: DENIES: pedal edema, unilateral swelling Pulmonary Respiratory: DENIES: cough, dyspnea, pleuritic chest pain, sputum GI Upper Abdomen: DENIES: nausea, pain, vomiting Lower Abdomen: DENIES: diarrhea Comments suprapubic discomfort General: DENIES: dysuria, frequency Musculoskeletal General: DENIES: joint pain, tenderness Integumentary Skin: DENIES: itching, rash Neurological General: DENIES: headache, numbness, weakness Psychiatric Psychiatric: DENIES: emotional instability, suicidal ideation/attempt Endocrine Endocrine: DENIES: polydipsia, polyphagia Hematologic/Lymphatic Hematologic/Lymphatic: DENIES: frequent nosebleeds, lymphadenopathy Allergic/Immunological Allergic/Immunoligical: DENIES: allergic reactions, hives Physical Exam General General Nourishment: well nourished, well developed, appears stated age, no acute distress, adult General Body Habitus: well groomed Vitals and Pain First Documented Vital Signs Date Time Temp Pulse Resp B/P Pulse Ox O2 Delivery O2 Flow Rate FiO2 02/15/17 17:20 98.4 108 16 200/100 98 Room Air Weight: Kilograms: 183.900 Height (feet): 5 Height (inches): 5.00 Triage Pain Scale: RN VS reviewed by Provider: Yes Normal Exams: Head: Normocephalic w/o trauma Eyes: Pupils are PERRLA w/ EOMI, No scleral icterus, irritation, or foreign bodies noted ENMT: No facial trauma, nasal exudates, pharyngeal erythema, or exudates are noted Dental: No fractured, loose, or missing teeth noted Neck: Full range of motion, without adenopathy, JVD, bruits or thyromegaly Chest/Resp: Clear all watson, with good airflow, and symmetry bilaterally CV: Regular rate and rhythm, without murmur or gallop, Pulses 2+ all extremities, capillary refill, <2 seconds all ext., no pedal edema noted Abdomen: Bowel sounds positive, soft, non-tender, non-distended, no hepatosplenomegaly, masses or bruits noted Lymphatic: No lymphadenopathy, or lymphedema noted Musculoskeletal: No tenderness, or deformity noted, good range of motion, all extremities Integumentary: No rashes, hives, or bruising noted, hair and nails, without abnormality Neurologic: Patient is alert, and oriented, cranial nerves, motor/sensory/ cerebellar, exams w/o gross deficits, to observation Psychiatric: Patient exhibits, appropriate attention, emotion and affect Abdomen (brief) Comments NO CVAT. (brief) Comments Patient declined pelvic exam. Differential Diagnoses Considering: Medication Effect, Metabolic, UTI, Other (Urinary retention) Progress Results/Orders Orders Procedure Category Date Status Time Catheterize For Ua JEFFERY 02/15/17 In Process 18:32 Ua, Dip Wreflex LAB 02/15/17 Complete Microsc & Sales Account Coordinator 18:32 LAB 02/15/17 Complete Qualitative, Urine 18:32 Whitman (Ed) EDM 02/15/17 Transmitted 18:32 Catheter Needs JEFFERY 02/15/17 In Process Assessment 18:32 Bladder Scanner (Ed) EDM 02/15/17 Transmitted 18:32 Cbc W/Auto LAB 02/15/17 Complete Diff-Reflex Manual Cmp - Comprehensive LAB 02/15/17 Complete Metabolic Lipase LAB 02/15/17 Complete Lab Results Laboratory Tests Test 02/15/17 18:50 02/15/17 19:05 White Blood Count 6.8T/MM3 Red Blood Count 4.52M/MM3 Hemoglobin 13.6GM/DL Hematocrit 41.8% Mean Corpuscular Volume 92.5UM3 Mean Corpuscular Hemoglobin 30.1UUG Mean Corpuscular Hemoglobin Concent 32.5GM/DL RDW Standard Deviation 47.2FL Platelet Count 232T/MM3 Mean Platelet Volume 9.8UM3 Immature Granulocyte % (Auto) 0.3% Neutrophils (%) (Auto) 47.7% Lymphocytes (%) (Auto) 42.1% Monocytes (%) (Auto) 7.5% Eosinophils (%) (Auto) 1.8% Basophils (%) (Auto) 0.6% Absolute Immature Granulocyte (auto 0.02T/MM3 Absolute Neutrophils (auto) 3.2T/MM3 Absolute Lymphocytes (auto) 2.9T/MM3 Absolute Monocytes (auto) 0.5T/MM3 Absolute Eosinophils (auto) 0.1T/MM3 Absolute Basophils (auto) 0.0T/MM3 Turbidity < 20 Sodium Level 142MEQ/L Potassium Level 3.7MEQ/L Chloride Level 103MEQ/L Carbon Dioxide Level 25MEQ/L Anion Gap 14MEQ/L Blood Urea Nitrogen 13.0MG/DL Creatinine 0.7MG/DL Glomerular Filtration Rate Calc 96 BUN/Creatinine Ratio 19RATIO Glucose Level 104MG/DL Calculated Osmolality 273MOSM/KG Calcium Level 9.4MG/DL Total Bilirubin 0.50MG/DL Icterus Index < 2 Aspartate Amino Transf (AST/SGOT) 19U/L Alanine Aminotransferase (ALT/SGPT) 32U/L Alkaline Phosphatase 92U/L Total Protein 7.4G/DL Albumin 3.9G/DL Globulin 3.5G/DL Albumin/Globulin Ratio 1.1RATIO Lipase 91U/L Chemistry Specimen Hemolysis 15 Urine Collection Type Whitman indwelling Urine Color Yellow Urine Turbidity Clear Urine pH 5.5 Urine Specific [place] <=1.005 Urine Protein Negative Urine Glucose (UA) Negative Urine Ketones Negative Urine Blood Trace-intact Urine Nitrite Negative Urine Bilirubin Negative Urine Urobilinogen 0.2EU/DL Urine Leukocyte Esterase Negative Urinalysis Comment Microscopic not ind. Urine Test Negative Progress Progress Labs are discussed in detail with the patient and questions are answered. Patient declines offered analgesic pain medication. Patient has a Whitman catheter placed in the emergency department with return of clear yellow urine. Patient is feeling markedly improved. Patient declines offered CT scan of the abdomen pelvis. Patient is discussed with her primary care physician Dr. Cooper who is in agreement with the current plan of management. Patient is discharged home with the Whitman catheter in place. Follow-up appointment is obtained for her tomorrow morning with primary care physician. Patient is in agreement with the current plan of management. Patient is discharged home in improved condition. Patient is to follow up as instructed. Patient is to return to the emergency Department if her condition worsens or changes in any manner. Patient is noted to be asymptomatic with elevated blood pressure. Patient declines recommended workup and treatment of elevated blood pressure. Risks vs benefits are discussed in detail with the patient and questions are answered. She verbalizes agreement and understanding. Repeat BP: 202/102 with appropriately sized blood pressure cuff. CRISTI BLACK DO Feb 15, 2017 19:09
[2017-02-15 19:21] LABS: BLOOD, URINE TRACE-INTACT (NEGATIVE); COLOR,URINE YELLOW (YELLOW); LEUKOCYTE ESTERASE ,URINE NEGATIVE (NEGATIVE); NITRITE,URINE NEGATIVE (NEGATIVE); UROBILINOGEN,URINE 0.2 EU/DL (NORMAL)
[2017-02-15 19:25] LABS: BUN/CREATININE RATIO 19 RATIO (6-26); GLOMERULAR FILTRATION RATE 96
[2017-02-15 19:29] LABS: BASOPHILS % (AUTO) 0.6 % (0-2); EOSINOPHILS # (AUTO) 0.1 T/MM3 (0-0.5); EOSINOPHILS % (AUTO) 1.8 % (0-4); HCT - HEMATOCRIT 41.8 % (36-46); HGB - HEMOGLOBIN 13.6 GM/DL (12-16); IMMATURE GRANULOCYTE # (AUTO) 0.02 T/MM3 (0.00-0.03); IMMATURE GRANULOCYTE % (AUTO) 0.3 % (0.0-0.5); LYMPHOCYTES # (AUTO) 2.9 T/MM3 (1-4.8); LYMPHOCYTES % (AUTO) 42.1 % (23-45); MEAN CORPUSCULAR HGB 30.1 UUG (26-34); MEAN CORPUSCULAR HGB CONC(MCHC 32.5 GM/DL (31-37); MEAN CORPUSCULAR VOLUME 92.5 UM3 (80-100); MEAN PLATELET VOLUME 9.8 UM3 (9.4-12.4); MONOCYTES # (AUTO) 0.5 T/MM3 (0-0.8); MONOCYTES % (AUTO) 7.5 % (0-9.0); NEUTROPHILS #(AUTO)-ABSOLUTE 3.2 T/MM3 (1.8-7.7); NEUTROPHILS % (AUTO) 47.7 % (33-66); RED BLOOD COUNT 4.52 M/MM3 (4.00-5.20); WBC - WHITE BLOOD COUNT 6.8 T/MM3 (4.5-11.0)
[2017-02-15 19:34] LABS: ALBUMIN 3.9 G/DL (3.5-5.0); ALBUMIN/GLOBULIN RATIO 1.1 RATIO (1.1-2.2); ALKALINE PHOSPHATASE 92 U/L (38-126); ALT (SGPT) 32 U/L (9-52); AST (SGOT) 19 U/L (14-36); CO2 - CARBON DIOXIDE 25 MEQ/L (22-30); CREATININE 0.7 MG/DL (0.7-1.2); LIPASE 91 U/L (23-300); POTASSIUM 3.7 MEQ/L (3.6-5); SODIUM 142 MEQ/L (134-144); TOTAL PROTEIN 7.4 G/DL (6.3-8.2)
[2017-02-15 20:15] VITALS: BP 202/102; PULSE 99; RESP 20; O2SAT 99
--- NOTE | 2017-02-15 20:15 | NUR ---
DEPART PT IS GIVEN DISMISSAL INSTRUCTIONS WITH VERBAL UNDERSTANDING. PT LEAVES AMBUALTORY TO ED EXIT
[2017-02-15 21:27] LABS: ANION GAP 13 MEQ/L (5-15); CALCIUM 9.5 MG/DL (8.4-10.2); CHLORIDE 104 MEQ/L (98-107); GLUCOSE 103 MG/DL (65-110)
== END 2017-02-15 20:15 | disposition home or self-care (01) ==
LOC: ED 17:12
DX: R33.9 Retention of urine, unspecified (principal); R10.2 Pelvic and perineal pain
CPT/HCPCS: 36415; 51702; 80053; 81003; 81025; 83690; 85025

== ENCOUNTER 2017-02-18 14:22 | Emergency (ER) | payer MEDICARE ==
[~2017-02-18] VITALS: Ht 165.1 cm; Wt 181.9 kg
[~2017-02-18 14:22] MED LIST changes: -CLIN-89 PO; +CLON0.5T4 PO; -CLON1TAB PO
[2017-02-18 14:26] VITALS: Ht 165.1 cm; Wt 181.9 kg
--- NOTE | 2017-02-18 14:40 | NUR ---
CATHETER ACTIVITY CATHETER RETAPED TO LEG, BAG EMPTIED, 300 ML CONCENTRATED URINE DRAINED. URINE NOTED IN CATHETER TUBING AFTER RETAPING
--- NOTE | 2017-02-18 15:00 | NUR ---
CATHETER ACTIVITY BALLOON DEFLATED, CATHETER ADVANCED AND BALLOON REINFLATED WITH 10ML NS. 100 ML CONCENTRATED URINE DRAINED AFTER CATHETER ADVANCEMENT.
--- NOTE | 2017-02-18 15:01 | ERPDOC ---
Departure Disposition Decision Date: Feb 18, 2017 Disposition Decision Time: 15:38 Disposition: 01 DISCHARGED HOME, SELF-CARE Impression Impression Impression: Primary Impression: Murillo catheter problem Encounter type: initial encounter Qualified Codes: T83.9XXA - Unspecified complication of genitourinary prosthetic device, implant and graft, initial encounter Additional Impression: Bladder spasms Condition: Improved Seen By: Physician only Referrals: HAMILTON COOPER DO (Family) Patient Instructions: Murillo Catheter Placement and Care (ED) Problems/Meds/Labs Reviewed?: Yes Medications reviewed and manag: Yes Additional Instructions: 1) DRINK PLENTY OF FLUIDS, ESPECIALLY WATER 2) CONTINUE CURRENT MEDICATIONS DIRECTED 3) MAY TAKE LOU DIRECTED FOR BLADDER SPASMS Follow up care ordered?: Yes Mental Status: Alert, Oriented Scripts [place]/Sod Phos/Meth Blue/Hyos (Lou Capsule) 1 Each Capsule 1 CAP PO QID, #20 CAP 0 Refills Prov: CHENG ARTEAGA MD 02/18/17 HPI - Female General Chief Complaint: Female Urogenital Problems Stated Complaint: LEAKING CATHETER Time Seen by Provider: 14:40 Source: patient HPI - Female Initial Comments 32 YO BF who presents to ER for suspected malfunction of murillo catheter. Patient had catheter placed last week because "bladder sling broke and I couldn' t urinate." This morning, patient noted increased urethral pressure. She feels like there is urine leaking around the catheter. She reports only 300 cc in catheter bag. She states she is drinking lots of fluids. No fever, chills, flank pain. No blood in urine. Occurred At: home Pain Scale: Now: 2/10 (pressure) Severity/Quality: fullness Location: suprapubic Radiation: urethral Associated Symptoms: DENIES: fever/chills, lower back pain, nausea/vomiting, swelling, syncope Allergies: Coded Allergies: iodine (Verified Allergy, Intermediate, BLISTERS AND HIVES, 02/18/17) morphine (Verified Allergy, Intermediate, SIMPSON, TACHYCARDIA, 02/18/17) Iodinated Contrast Media - Oral and (Verified Allergy, Unknown, 02/18/17) ondansetron (Verified Allergy, Unknown, 02/18/17) tramadol (Verified Allergy, Unknown, 02/18/17) Penicillins (Verified Adverse Reaction, Unknown, "peeling skin", 02/18/17) Past History Past Medical History Metabolic: hypertension ENMT: dental problems Respiratory: COPD GI: GERD, IBS, ulcers Neurological: headaches, migraines Musculoskeletal: back pain, osteoarthritis Psychological: anxiety, bipolar, psychosis Surgical History General: EGD, gallbladder, tonsils Reproductive/: hysterectomy, other ("bladder sling") Family History Family PMH: FOUND: diabetes, hypertension Vaccines Hx Influenza Vaccination: Yes (2013) Hx Pneumococcal Vaccination: No Social History Substance Use Type: does not use Alcohol Intake: none Sexuality: male partner Review of Systems Constitutional Constitutional: DENIES: appetite decrease, chills, dizziness, fatigue, fever, syncope, weakness Eyes General: DENIES: erythema, exudate, photophobia Vision: DENIES: blurring, double vision ENMT Sinuses: DENIES: congestion Nose: DENIES: nosebleeds Mouth/Throat: DENIES: painful swallowing, sore throat Cardiovascular Cardiac: DENIES: chest pain, dyspnea on exertion Rhythm/Rate: DENIES: irregular beat, palpitations Pulmonary Respiratory: DENIES: cough, dyspnea GI Upper Abdomen: DENIES: nausea, vomiting Lower Abdomen: DENIES: diarrhea General: DENIES: cloudy urine, hematuria Integumentary Skin: DENIES: rash Neurological General: DENIES: seizures, syncope Physical Exam General General Nourishment: no acute distress, obese Vitals and Pain First Documented Vital Signs Date Time Temp Pulse Resp B/P Pulse Ox O2 Delivery O2 Flow Rate FiO2 02/18/17 14:26 98.0 97 19 195/112 95 Room Air Weight: Kilograms: 181.900 Height (feet): 5 Height (inches): 5.00 Triage Pain Scale: Normal Exams: Head: Normocephalic w/o trauma Eyes: Pupils are PERRLA w/ EOMI, No scleral icterus Chest/Resp: Clear all watson, with good airflow, and symmetry bilaterally CV: Regular rate and rhythm, without murmur or gallop, Pulses 2+ all extremities, capillary refill, <2 seconds all ext. Abdomen: Bowel sounds positive, soft, non-tender, non-distended, no hepatosplenomegaly Integumentary: No rashes, hives, or bruising noted Neurologic: Patient is alert, and oriented, cranial nerves, motor/sensory/ cerebellar, exams w/o gross deficits Psychiatric: Patient exhibits, appropriate attention, emotion and affect Vulva: NOT FOUND: blood, discharge, ecchymosis, erythema, lesion, swelling Urethra: FOUND: other (catheter in place) Differential Diagnoses Considering: UTI, Other (Urinary retention; Murillo catheter malfunction;) Progress Results/Orders Orders Procedure Category Date Status Time Catheter Irrigation JEFFERY 02/18/17 Complete 14:54 Catheter Needs JEFFERY 02/18/17 Complete Assessment 14:54 Solifenacin (Vesicare) PHA 02/18/17 Complete 15:15 UA, LAB 02/18/17 Complete Dip&Micro(Complete) & 15:19 Lab Results Laboratory Tests Test 02/18/17 15:19 Urine Collection Type Murillo indwelling Urine Color Yellow Urine Turbidity Sl cloudy Urine pH 6.0 Urine Specific [place] 1.015 Urine Protein 1+ Urine Glucose (UA) Negative Urine Ketones Negative Urine Blood 3+ Urine Nitrite Negative Urine Bilirubin Negative Urine Urobilinogen 0.2EU/DL Urine Leukocyte Esterase Negative Urine RBC 30-50/HPF Urine WBC 1-3/HPF Urine Squamous Epithelial Cells 0-5 Urine Bacteria Trace Urine Culture Indicated Cult not indicated Medications Current ED Medications Solifenacin (Vesicare) 5 mg O ONCE PO Last administered on 02/18/17t 15:20; Start 02/18/17 at 15:15; Stop 02/18/17 at 15:16; Status DC Progress Progress Nursing staff repositioned catheter. Urine draining. Urine specimen sent to lab for UA. UA results reviewed with patient. Patient feels discomfort has improved. CHENG ARTEAGA MD Feb 18, 2017 15:01
[2017-02-18] MEDS ORDERED: SOLIFENACIN 5 MG TABLET PO ONE (15:15)
[2017-02-18 15:23] LABS: BLOOD, URINE 3+ (NEGATIVE); COLOR,URINE YELLOW (YELLOW); LEUKOCYTE ESTERASE ,URINE NEGATIVE (NEGATIVE); NITRITE,URINE NEGATIVE (NEGATIVE); UROBILINOGEN,URINE 0.2 EU/DL (NORMAL)
[2017-02-18] MEDS ORDERED: SUCR1TAB PO (15:25)
[2017-02-18 15:33] LABS: RBC,URINE 30-50 /HPF (0-3)
[2017-02-18 15:34] LABS: BACTERIA,URINE TRACE (NEGATIVE); SQUAMOUS EPITHELIAL CELL,UR 0-5
[2017-02-18] MEDS ORDERED: METH1CAP PO (15:43)
[2017-02-18 15:49] VITALS: BP 180/100; PULSE 97; RESP 19; TEMP 98; O2SAT 95
== END 2017-02-18 15:49 | disposition home or self-care (01) ==
LOC: ED 14:22
DX: T83.031A Leakage of indwelling urethral catheter, initial encounter (principal); N32.89 Other specified disorders of bladder; Y73.1 Therapeutic (nonsurgical) and rehabilitative gastroenterology and urology devices associated with adverse incidents; Y92.009 Unspecified place in unspecified non-institutional (private) residence as the place of occurrence of the external cause
CPT/HCPCS: 81001; 99283; A9270

== ENCOUNTER 2017-02-21 23:11 | Emergency (ER) | payer MEDICARE ==
[~2017-02-21] VITALS: Ht 165.1 cm; Wt 185.3 kg
[~2017-02-21 23:11] MED LIST changes: +METH1CAP PO; +SUCR1TAB PO
[2017-02-21 23:17] VITALS: Ht 165.1 cm; Wt 185.3 kg
--- NOTE | 2017-02-21 23:17 | NUR ---
PROVIDER DR STONE IN ROOM W/ PT.
[2017-02-21] MEDS ORDERED: FUROSEMIDE 20 MG TABLET PO ONE (23:30)
--- NOTE | 2017-02-21 23:31 | ERPDOC ---
Departure Disposition Decision Date: February 21, 2017 Disposition Decision Time: 23:47 Disposition: 01 DISCHARGED HOME, SELF-CARE Impression Impression Impression: Primary Impression: Fluid retention Additional Impression: Urinary tract infection associated with catheterization of urinary tract Indwelling urinary catheter type: indwelling urethral catheter Encounter type : initial encounter Qualified Codes: N39.0 - Urinary tract infection, site not specified; T83.511A - Infection and inflammatory reaction due to indwelling urethral catheter, initial encounter Severity: Moderate Condition: Improved Seen By: Physician only Referrals: HAMILTON COOPER DO (Family) Patient Instructions: Catheter-associated Urinary Tract Infection (ED), Edema ( ED) Problems/Meds/Labs Reviewed?: Yes Medications reviewed and manag: Yes Additional Instructions: Levaquin 500 mg, one tablet daily for 10 days Lasix 20 mg, one tablet daily for 3 days Call first thing in the [facility] Follow up care ordered?: Yes Mental Status: Alert Scripts Furosemide (Lasix) 20 Mg Tablet 1 TAB PO DAILY, #3 TAB Prov: LIDIA STONE MD 02/21/17 Levofloxacin (Levaquin) 500 Mg Tablet 1 TAB PO DAILY, #10 Prov: LIDIA STONE MD 02/21/17 HPI - Lower Extremity General Stated Complaint: BOTH LEGS SWELLING Time Seen by Provider: 23:13 Source: patient Exam Limitations: no limitations HPI - Lower Extremity Initial Comments Pt complains of several days of worsening bilateral foot and ankle swelling. Also complaining of small specks of blood in urinary catheter. Patient has been evaluated for leg swelling in the past, has had at least one day of DVT study at this facility. Patient has no history of DVTs, has no history of congestive heart failure, but has had fluid retention in the past. Patient had Whitman catheter placed one week ago for urinary retention related to rectocystocele. Patient has not seen her primary physician since that time, neither has she mentioned the blood in her catheter or her leg swelling until tonight when she called the nurse line. Apparently the patient was told that she could go to the ER if she felt it was needed, and the patient decided come to the ER tonight. All symptoms are ongoing, for greater than 3-4 days each, and patient was not able to tell me why she chose tonight come to the ER. Occurred At: home Onset/Timing: Gradual Duration: 1 week Severity: moderate Allergies: Coded Allergies: iodine (Verified Allergy, Intermediate, BLISTERS AND HIVES, 02/18/17) morphine (Verified Allergy, Intermediate, SIMPSON, TACHYCARDIA, 02/18/17) Iodinated Contrast Media - Oral and (Verified Allergy, Unknown, 02/18/17) ondansetron (Verified Allergy, Unknown, 02/18/17) tramadol (Verified Allergy, Unknown, 02/18/17) Penicillins (Verified Adverse Reaction, Unknown, "peeling skin", 02/18/17) Past History Patient Medical History Problem List Updates: Urinary retention Past Medical History Metabolic: hypertension ENMT: dental problems Respiratory: COPD GI: GERD, IBS, ulcers Neurological: headaches, migraines Musculoskeletal: back pain, osteoarthritis Psychological: anxiety, bipolar, psychosis Surgical History General: EGD, gallbladder, tonsils Reproductive/: hysterectomy, other Family History Family PMH: FOUND: diabetes, hypertension Vaccines Hx Influenza Vaccination: Yes (2013) Hx Pneumococcal Vaccination: No Social History Substance Use Type: does not use Alcohol Intake: none Sexuality: male partner Review of Systems Constitutional Constitutional: DENIES: appetite decrease, appetite increase, chills, dizziness , fever, weakness ENMT Ears: DENIES: pain Hearing: DENIES: hearing loss, tinnitus Balance: DENIES: vertigo Mouth/Throat: DENIES: change in swallowing, change in voice, hoarsness, painful swallowing, sore throat Cardiovascular Cardiac: DENIES: chest pain, dyspnea on exertion Rhythm/Rate: DENIES: irregular beat, palpitations, tachycardia Vascular: DENIES: pedal edema Pulmonary Respiratory: DENIES: cough, dyspnea, pleuritic chest pain GI Upper Abdomen: DENIES: dysphagia, heartburn/indigestion, nausea, pain, vomiting Lower Abdomen: DENIES: blood in stool, constipation, diarrhea, pain General: hematuria, DENIES: burning, dysuria, frequency, pain, urgency Musculoskeletal General: DENIES: cramps, joint pain, joint swelling, pain, weakness Comments Bilateral foot and ankle swelling without injury Integumentary Skin: DENIES: rash, sores Neurological General: DENIES: headache, numbness, tingling, vertigo, weakness Psychiatric Psychiatric: DENIES: anxiety, depression, nervousness Physical Exam General General Nourishment: well nourished, well developed, appears stated age, no acute distress, obese General Body Habitus: well groomed Vitals and Pain Weight: Kilograms: Height (feet): 5 Height (inches): 5.00 Triage Pain Scale: RN VS reviewed by Provider: Yes Normal Exams: Head: Normocephalic w/o trauma Eyes: Pupils are PERRLA w/ EOMI, No scleral icterus, irritation, or foreign bodies noted ENMT: No facial trauma, nasal exudates, pharyngeal erythema, or exudates are noted Neck: Full range of motion, without adenopathy, JVD, bruits or thyromegaly Chest/Resp: Clear all watson, with good airflow, and symmetry bilaterally CV: Regular rate and rhythm, without murmur or gallop, Pulses 2+ all extremities, capillary refill, <2 seconds all ext., no pedal edema noted Abdomen: Bowel sounds positive, soft, non-tender, non-distended, no hepatosplenomegaly, masses or bruits noted Musculoskeletal: No tenderness, or deformity noted, good range of motion, all extremities Integumentary: No rashes, hives, or bruising noted, hair and nails, without abnormality Neurologic: Patient is alert, and oriented, cranial nerves, motor/sensory/ cerebellar, exams w/o gross deficits, to observation Psychiatric: Patient exhibits, appropriate attention, emotion and affect Musculoskeletal (brief) Musculoskeletal Brief: NOT FOUND: deformity, loss of motion, spasm, tenderness (patient has no calf tenderness, no significant calf swelling, and calves are equal bilaterally) Comments Bilateral 1+ pitting edema to the foot and ankle, symmetric. Progress Results/Orders Orders Procedure Category Date Status Time Catheterize For Ua JEFFERY 02/21/17 In Process 23:21 Furosemide (Lasix) PHA 02/21/17 Complete 23:30 UA, LAB 02/21/17 In Process Dip&Micro(Complete) & 23:35 Lab Results Laboratory Tests Test 02/21/17 23:35 Urine Collection Type Whitman indwelling Urine Color Yellow Urine Turbidity Cloudy Urine pH 6.5 Urine Specific [place] 1.015 Urine Protein 1+ Urine Glucose (UA) Negative Urine Ketones Negative Urine Blood 3+ Urine Nitrite Positive Urine Bilirubin Negative Urine Urobilinogen 0.2EU/DL Urine Leukocyte Esterase Trace Urine RBC Pending Urine WBC Pending Urine Bacteria Pending Medications Current ED Medications Furosemide (Lasix) 20 mg O ONCE PO Last administered on 02/21/17t 23:32; Start 02/21/17 at 23:30; Stop 02/21/17 at 23:31; Status DC Progress Progress Patient did have a small amount of cloudiness and blood speckled urine in the Whitman catheter UA - excited esterase, proteins, nitrites are positive, indicative of a urinary tract infection with Whitman catheter. Patient has no indication of DVT at this time, and is given Lasix 20 mg in the ER with Lasix 20 mg daily for the next 2 days to help mobilize fluid. Patient is to follow-up in the next 2 days with her primary care physician at [facility]. Patient is also started on Levaquin 500 milligrams one tablet daily for 10 days. LIDIA STONE MD February 21, 2017 23:31
--- NOTE | 2017-02-21 23:35 | NUR ---
UA COLLECTED VIA JEWELL CATH W/ PALE YELOW CLOUDY URINE.
[2017-02-21 23:43] LABS: BLOOD, URINE 3+ (NEGATIVE); COLOR,URINE YELLOW (YELLOW); LEUKOCYTE ESTERASE ,URINE TRACE (NEGATIVE); NITRITE,URINE POSITIVE (NEGATIVE); UROBILINOGEN,URINE 0.2 EU/DL (NORMAL)
[2017-02-21] MEDS ORDERED: LEVO500T63 PO (23:49)
[2017-02-21] MEDS ORDERED: FURO-154 PO (23:49)
[2017-02-21 23:51] LABS: BACTERIA,URINE 4+ (NEGATIVE); RBC,URINE 50-200 /HPF (0-3); WBC,URINE NONE SEEN /HPF (0-5)
[2017-02-21 23:58] VITALS: BP 151/93; PULSE 76; RESP 20; TEMP 98.2; O2SAT 95
--- NOTE | 2017-02-21 23:58 | NUR ---
DISCHARGE PT GIVEN INSTRUCTIONS FOR CONT CARE OF UTI AND EDEMA W/ RX X2 LASIX AND LEVAQUIN. PT VERBALIZED UNDERSTANDING AND SIGNED FORM. PT LEFT ER AMBULATORY W/O ASSIST, ALERT, VS CHARTED AND NO ACUTE DISTRESS.
[2017-02-22] MEDS ORDERED: LEVOFLOXACIN 500 MG TABLET PO ONE
== END 2017-02-21 23:58 | disposition home or self-care (01) ==
LOC: ED 23:11
DX: R60.0 Localized edema (principal); T83.511A Infection and inflammatory reaction due to indwelling urethral catheter, initial encounter; N39.0 Urinary tract infection, site not specified; R31.9 Hematuria, unspecified; Y73.1 Therapeutic (nonsurgical) and rehabilitative gastroenterology and urology devices associated with adverse incidents; Y92.009 Unspecified place in unspecified non-institutional (private) residence as the place of occurrence of the external cause
CPT/HCPCS: 81001; 87077; 87086; 87186; 99283; A9270

== ENCOUNTER → 2017-03-06 | Outpatient (CLI) | payer MEDICARE ==
[~2017-03-06] MED LIST changes: +FURO-154 PO; +LEVO500T63 PO; -METH1CAP PO
--- NOTE | 2017-03-07 08:32 | DI ---
Indication: ITS.REASON: R22.42 LOCALIZED SWELLING LT; R22.41 LOCALIZED SWELLING RT PROCEDURE: US VENOUS DUPLEX, LOWER EXT BI: Encounter: Initial Comparison: November 14, 2016 Technique: Color Doppler duplex and grayscale sonographic imaging of both lower extremities was performed. Findings: There is no evidence for acute deep venous thrombosis in either thigh. Specifically, serial graded compression was performed from the inguinal ligament to the popliteal bifurcation, bilaterally, demonstrating appropriate compressibility of the deep venous system. In addition, color and pulsed Doppler demonstrate appropriate spontaneous flow, variation with respiration, and augmentation with calf compression. At the ankle, normal flow is identified in the posterior tibial veins; these vessels are also normal in caliber. Impression: No evidence of acute DVT in either lower limb. There is a preliminary report by [facility]. .
== END ==
LOC: IMA 16:44
PROVIDERS: ATTEND Internal Medicine
DX: R22.42 Localized swelling, mass and lump, left lower limb (principal); R22.41 Localized swelling, mass and lump, right lower limb; I87.2 Venous insufficiency (chronic) (peripheral)